=== PATIENT | male | born 2000 | race Caucasian/White ===

== ENCOUNTER 2022-02-07 09:26 | Outpatient (CLI) | payer OTHER, SELFPAY ==
--- NOTE | ~2022-02-07 | US_ITS ---
EXAMINATION: US scrotum doppler DATE: 02/07/2022 10:08 INDICATION: Testicular pain TECHNIQUE: Testicular sonogram utilizing grayscale and Doppler COMPARISON: None. FINDINGS: The right testis measures 3.3 x 3.4 x 2.5 cm. The left testis measures 4.2 x 3.5 x 2.3 cm. There is normal vascular flow to both testes. The right epididymis is normal with normal vascular dottie w. The left epididymis contains a 1.3 cm anechoic area, consistent with a cyst or spermatocele. There is no varicocele or hydrocele. IMPRESSION: 1. 1.3 cm cyst or spermatocele of the left epididymis. Reviewed, dictated and finalized at location A.
== END 2022-02-07 09:27 | disposition home or self-care (01) ==
PROVIDERS: PCP Family Medicine; Visit Provider Nurse Practitioner Family
DX: N50.819 Testicular pain, unspecified (principal); N50.3 Cyst of epididymis
CPT/HCPCS: 76870; 93976

== ENCOUNTER 2022-03-18 14:51 | Outpatient (CLI) | payer OTHER, SELFPAY ==
--- NOTE | ~2022-03-18 | XR_ITS ---
XR abdomen/kub 1V 03/18/2022 15:12 INDICATION: Microscopic hematuria TECHNIQUE: KUB COMPARISON: None FINDINGS: Bowel gas pattern is normal. There is no evidence of free air, mass, organomegaly, ascites or obstruction. No abnormal calculi are seen. The bones appear intact. There are pelvic phlebolith s. IMPRESSION: 1: No acute abdominal abnormality identified. Reviewed, dictated and finalized at location B.
--- NOTE | ~2022-03-18 | CT_ITS ---
EXAMINATION: CT abdomen pelvis wo/w con DATE: 03/18/2022 15:36 INDICATION: Microscopic hematuria TECHNIQUE: Computed tomography (CT) of the abdomen and pelvis was performed without and with 130 cc O mnipaque 300 intravenous contrast. The dose-length product was 2524.69 mGy-cm. Automated exposure con trol and iterative reconstruction technique were employed. COMPARISON: None. FINDINGS: Lung bases are unremarkable. Heart size is normal. No significant pleural or pericardial ef fusion. No significant vascular abnormality. No lymphadenopathy. The liver, spleen, pancreas, adrenal glands and kidneys are unremarkable. Gallbladder is present. No renal stones or hydronephrosis. Nonobstructive bowel gas pattern. No acute osseous abnormality. There is a small 1 cm left renal cyst. Ureters are normal in course and caliber. Bladder is unremarkable. No free air or free fluid. No abnormal pelvic masses or fluid collections. IMPRESSION: 1. No acute abdominal abnormality. Reviewed, dictated and finalized at location B.
== END 2022-03-18 14:52 | disposition home or self-care (01) ==
PROVIDERS: PCP Family Medicine; Visit Provider Urology
DX: R31.29 Other microscopic hematuria (principal)
CPT/HCPCS: 74018; 74178; Q9967

== ENCOUNTER 2024-08-17 06:51 | Outpatient (CLI) | payer OTHER, SELFPAY ==
[2024-08-17 07:35] LABS: Hematocrit 46.3 % (42.0-52.0); Hemoglobin 15.9 g/dL (14.0-18.0); Mean Corpuscular HGB Conc 34.3 g/dl (32-36); Mean Corpuscular Hemoglobin 30.5 pg (26-34); Mean Corpuscular Volume 88.7 fl (80-100); Mean Platelet Volume 9.8 fl (7.4-10.4); Platelet Count Result 426 k/mm3 (150-375); Red Blood Count 5.22 M/mm3 (4.6-6.20); Red Cell Distribution Width 12.7 % (11.5-14.5); White Blood Count 7.9 K/mm3 (4.5-10.0)
[2024-08-17 07:48] LABS: Alanine Aminotransferase 32 U/L (6-50); Albumin Level 4.8 g/dL (3.5-5.1); Alkaline Phosphatase 72 U/L (38-126); Anion Gap 9 mmol/L (4-12); Aspartate Amino Transferase 33 U/L (17-59); Bilirubin,Total 0.6 mg/dL (0.2-1.3); Blood Urea Nitrogen 13 mg/dL (9-20); Calcium 9.4 mg/dL (8.4-10.2); Carbon Dioxide 28 mmol/L (22-30); Chloride 103 mmol/L (98-107); Cholesterol 157 mg/dL (0-200); Estimated Glomerular Filt Rate > 60; Glucose 95 mg/dL (65-110); HDL Direct 41 mg/dL; Potassium 3.9 mmol/L (3.4-5.0); Sodium 140 mmol/L (137-145); Triglycerides 168 mg/dL (<150)
[2024-08-17 07:59] LABS: LDL Cholesterol Direct 63 mg/dL
[2024-08-17 09:55] LABS: Vitamin D 25 Hydroxy 18.9 ng/mL
== END 2024-08-17 06:52 | disposition home or self-care (01) ==
LOC: ANHLAB 06:54
PROVIDERS: PCP Family Medicine; Visit Provider Nurse Practitioner Family
DX: E55.9 Vitamin D deficiency, unspecified (principal); I10 Essential (primary) hypertension; Z13.220 Encounter for screening for lipoid disorders; F41.9 Anxiety disorder, unspecified; Z13.29 Encounter for screening for other suspected endocrine disorder
CPT/HCPCS: 36415; 80053; 80061; 82306; 84443; 85027

== ENCOUNTER 2024-11-25 11:21 | Outpatient (CLI) | payer OTHER, SELFPAY ==
[2024-11-25 11:44] LABS: Basophils Absolute Auto 0.2 K/mm3 (0.0-0.1); Basophils Percent Auto 1.9 % (0.2-1.2); Eosinophils Absolute Auto 0.7 K/mm3 (0-0.3); Eosinophils Percent Auto 7.7 % (0-4.4); Hematocrit 46.2 % (42.0-52.0); Hemoglobin 15.4 g/dL (14.0-18.0); Immature Granulocyte Absolute 0.04 K/mm3 (0.00-0.031); Immature Granulocyte Percent A 0.4 % (0-0.5); Lymphocytes Absolute Auto 2.92 K/mm3 (0.9-3.2); Lymphocytes Percent Auto 32.7 % (18.3-44.2); Mean Corpuscular HGB Conc 33.3 g/dl (32-36); Mean Corpuscular Volume 90.1 fl (80-100); Mean Platelet Volume 9.8 fl (7.4-10.4); Monocytes Absolute Auto 0.7 K/mm3 (0.1-0.6); Monocytes Percent Auto 8.3 % (2.6-8.5); Neutrophils Absolute Auto 4.4 K/mm3 (1.3-6.7); Platelet Count Result 432 k/mm3 (150-375); Red Blood Count 5.13 M/mm3 (4.6-6.20); Red Cell Distribution Width 12.1 % (11.5-14.5); White Blood Count 8.9 K/mm3 (4.5-10.0)
--- OUTSIDE RECORDS SUMMARY | 2024-11-25 12:21 | XMS_ITS | Clinical Summary ---
Author Organization [facility] Address [address] [place] [address]. [place] [address] [place] [address] Care Team Providers Care In Flight Technician Name Role Phone Damon Saunders MD Primary Care Provider [phone] Allergies No known active allergies Medications No known medications Social History Tobacco Use Types Packs/Day Years Used Date Smoking Tobacco: Never Smokeless Tobacco: Never Tobacco Cessation:Counseling Given: Not Answered Alcohol Use Standard Drinks/Week Comments Yes 0 (1 standard drink = 0.6 oz pur e alcohol) 1-2 weekly Sex and Gender Information Value Date Recorded Sex Assigned at Not on file Legal Sex Male 8:53 AM CDT Gender Identity Not on file Sexual Orientation Not on file Last Filed Vital Signs Vital Sign Reading Time Taken Comments Blood Pressure 128/65 04/27/2023 10:30 AM CDT Pulse 92 04/27/2023 10:30 AM CDT Temperature 37.1 ??C (98.8 ??F) 04/27/2023 10:25 AM C DT Respiratory Rate 20 04/27/2023 10:25 AM CDT Oxygen Saturation 98% 04/27/2023 10:30 AM CDT Inhaled Oxygen Concentration - - Weight 108.9 kg (240 lb) 04/27/2023 8:59 AM CDT Height 182.9 cm (6') 04/27/2023 8:59 AM CDT Body Mass Index 32.55 04/27/2023 8:59 AM CDT Plan of Treatment Health Maintenance Due Date Last Done Comments Annual Physical 2001 HPV Vaccines (1 - Male 3-dose series) 2013 Hepatitis C 2016 DTaP, Tdap and Td Vaccines (7 - Td or Tdap) 07/08/2020 07/08/2010, 06/03/2004, 01/11/2000, Additional history exists COVID-19 Vaccine (2023- season) 2024 01/28/2022, 12/31/2021 Influenza Adult (#1) 2024 Hepatitis B Vaccines Completed 04/12/1999, 1998, 1998 Meningococcal Vaccine Aged Out 07/08/2010 No diana tawnya eligible based on patient's age to complete this topic Pneumococcal Vaccine: Pediatrics (0 to 5 Years) and At-Risk Patients (6 to 64 Years) Aged Out No longer eligible based on patient's age to complete this topic RSV Immunizations Under 20 Months Aged Out No longer eligible based on patient's age to complete this topic Insurance [facility] Care Teams In Flight Technician Relationship Specialty Start Date End Date Damon Saunders MD [address] [address] PCP - General FAMILY PRACTICE 04/27/23
[2024-11-25 12:48] LABS: Alanine Aminotransferase 37 U/L (6-50); Albumin Level 4.7 g/dL (3.5-5.1); Alkaline Phosphatase 63 U/L (38-126); Anion Gap 10 mmol/L (4-12); Aspartate Amino Transferase 43 U/L (17-59); Bilirubin,Total 0.7 mg/dL (0.2-1.3); Blood Urea Nitrogen 16 mg/dL (9-20); CRP 1.2 mg/dL (<1.0); Calcium 9.4 mg/dL (8.4-10.2); Carbon Dioxide 28 mmol/L (22-30); Chloride 102 mmol/L (98-107); Estimated Glomerular Filt Rate > 60; Glucose 89 mg/dL (65-110); Potassium 4.8 mmol/L (3.4-5.0); Sodium 140 mmol/L (137-145)
[2024-11-25 12:54] LABS: Iron 86 ug/dL (49-181)
[2024-11-25 13:04] LABS: Percent Iron Saturation 25 % (20-50)
[2024-11-25 13:06] LABS: Erythrocyte Sedimentation Rate 31 mm/hr (0-20)
== END 2024-11-25 11:22 | disposition home or self-care (01) ==
LOC: ANHLAB 11:22
PROVIDERS: PCP Family Medicine; Visit Provider Internal Medicine Hematology & Oncology
DX: D75.838 Other thrombocytosis (principal)
CPT/HCPCS: 36415; 80053; 82728; 83540; 83550; 85025; 85652; 86140

== ENCOUNTER 2025-06-05 07:04 | Outpatient (CLI) | payer OTHER, SELFPAY ==
--- OUTSIDE RECORDS SUMMARY | 2025-06-05 07:08 | XMS_ITS | Clinical Summary ---
[facility] Address [address] [place] [address] Care Team Providers Care Software Support Technician Name Role Phone Damon Saunders MD Primary Care Provider Allergies No known active allergies Medications lisinopriL (PRINIVIL) 5 mg tablet Take 5 mg by mouth daily. Active D3-red wine-resveratrol -malt 5,000-200 unit-mg Capsule Take by mouth. Active citalopram (CeleXA) 40 mg tablet Take 40 mg by mouth daily. Active Active Problems No known active problems Encounters Date Type Department Care Team Description 06/03/2025 External Device Data STL ABSTRACTION Provider, Abstract 04/16/2025 External Device Data STL ABSTRACTION Provider, Abstract 03/20/2025 External Device Data STL ABSTRACTION Provider, Abstract 03/19/2025 External Device Data STL ABSTRACTION Provider, Abstract from Last 3 Months Family History Medical History Relation Name Comments No Known Problems Brother No Known Problems Father No Known Problems Mother Relation Name Status Comments Brother Alive Father Alive Mother Social History Tobacco Use Types Packs/Day Years Used Date Smoking Tobacco: Never Smokeless Tobacco: Never Alcohol Use Standard Drinks/Week Comments Not Currently 0 (1 standard drink = 0.6 oz pur e alcohol) Occasionally Sex and Gender Information Value Date Recorded Sex Assigned at Not on file Legal Sex Male 11:49 AM ANNUAL GIVING MANAGER Gender Identity Not on file Sexual Orientation Not on file Last Filed Vital Signs Vital Sign Reading Time Taken Comments Blood Pressure 110/84 11/25/2024 10:48 AM ANNUAL GIVING MANAGER Pulse 100 11/25/2024 10:48 AM ANNUAL GIVING MANAGER Temperature 37.2 C (99 F) 11/25/2024 10:48 AM ANNUAL GIVING MANAGER Respiratory Rate 17 11/25/2024 10:4 8 AM ANNUAL GIVING MANAGER Oxygen Saturation 95% 11/25/2024 10: 48 AM ANNUAL GIVING MANAGER Inhaled Oxygen Concentration - - Weight 115.8 kg (255 lb 6.4 oz) 025 10:48 AM ANNUAL GIVING MANAGER Height 182.9 cm (6') 11/25/2024 10:48 AM ANNUAL GIVING MANAGER Body Mass Index 34.64 11/25/2024 10:48 AM ANNUAL GIVING MANAGER Plan of Treatment Upcoming Encounters Date Type Department Care Team (Late st Contact Info) Description 06/09/2025 1:00 PM CDT Office Visit [facility] Oncology and Hematology - [place] [address] [facility] [address] [place] [id number] Jose Cruz Luevano MD [address] [facility] [address] [place] [address] Health Maintenance Due Date Last Done Comments HPV VACCINES (1 - Male 3-dose series) 2013 DTAP/TDAP/TD VACCINES (1 - Tdap) 2017 HEPATITIS B VACCINES (1 of 3 - 19+ 3-dose series) 06/30 Preventative Visit- Commercial 10/30/2024 INFLUENZA VACCINE (#1) 2025 Insurance [facility] [id number] Care Teams Software Support Technician Relationship Specialty Start Date End Date Damon Saunders MD [address] [place] [address] PCP - General Family Practice 12/10/24
--- OUTSIDE RECORDS SUMMARY | 2025-06-05 07:08 | XMS_ITS | Patient Health Record ---
Author Organization [facility] [employer] [facility] Address [address] [place] [address] Care Team Providers Care Retail Clerk Name Role Phone Hai Ribeiro Unavailable [phone] Reason For Referral No Information Medications Medication SIG (Take, Route, Frequency, Duration) Notes Start Date End Date Status Viibryd 40 MG Oral 02/11/2020 Activ e FLUoxetine HCl 20 MG Oral 02/11/2020 Active buPROPion HCl ER (XL) 150 MG Oral 02/11/2020 Active Plan Of Treatment No Information Insurance Providers Payer Name Payer Address Payer Phone Subscriber Number Group Number Insured Name Patient Relationship to Insured Coverage Start Date Coverage End Date [facility] [address] [place] [address] [phone] [id number] DIAMOND MCLAIN Self - patient is the insured
--- OUTSIDE RECORDS SUMMARY | 2025-06-05 07:09 | XMS_ITS | Clinical Summary ---
Author Organization [facility] Address [address] [place] [address] Care Team Providers Care Registered Midwife Name Role Phone Damon Saunders MD Primary Care Provider [phone] Allergies No known active allergies Medications No [...] 92 04/27/2023 10:30 AM CDT Temperature 37.1 C (98.8 F) 04/27/2023 10:25 AM CDT Respiratory Rate 20 04/27/2023 10:25 AM CDT [...] 06/03/2004, 01/11/2000, Additional history exists COVID-19 Vaccine ( season) 2024 01/28/2022, 12/31/2021 Hepatitis B Vaccines Completed 04/12/1999, 1998, 1998 Meningococcal Vaccine Aged Out 07/08/2010 No diana tawnya eligible based on patient's age to complete this topic Meningococcal B Vaccine Aged Out No l onger eligible based on patient's age to complete this topic Pneumococcal Vaccine: Pediatrics (0 to 5 Years) and At-Risk Patients (6 to 49 Years) Aged Out No longer eligible based on patient's age to complete this topic RSV Immunizations Under 20 Months Aged Out No longer eligible based on patient's age to complete this topic Insurance [facility] Care Teams Registered Midwife Relationship Specialty Start Date End Date Damon Saunders MD [address] [place] [address] PCP - General FAMILY PRACTICE 04/27/23
--- OUTSIDE RECORDS SUMMARY | 2025-06-05 07:09 | XMS_ITS | Encounter Summary ---
Author Organization [facility] Address [address] [place] [address] Care Team Providers Care Construction Plant Operator Name Role Phone Damon Saunders MD Primary Care Provider [phone] Encounter Details Date Type Department Care Team (Late st Contact Info) Description 06/03/2025 External Device Data STL ABSTRACTION Provider, Abstract NO ADDRESS ON FILE Social History Tobacco Use Types Packs/Day Years Used Date Smoking Tobacco: Never Smokeless Tobacco: Never Alcohol Use Standard Drinks/Week Comments Not Currently 0 (1 standard drink = 0.6 oz pur e alcohol) Occasionally Sex and Gender Information Value Date Recorded Sex Assigned at Not on file Legal Sex Male 11:49 AM EXPERIENCE SPECIALIST Gender Identity Not on file Sexual Orientation Not on file documented as of this encounter Plan of Treatment Upcoming Encounters Date Type Department Care Team (Late st Contact Info) Description 06/09/2025 1:00 PM CDT Office Visit [facility] Oncology and Hematology - [place] [address] [place] [address] [address] [place] [address] Jose Cruz Luevano MD [address] [place] [address] documented as of this encounter Visit Diagnoses Not on filedocumented in this encounter Care Teams Construction Plant Operator Relationship Specialty Start Date End Date Damon Saunders MD [address] [place] [address] PCP - General Family Practice 12/10/24 documented as of this encounter
== END 2025-06-05 07:05 | disposition home or self-care (01) ==
LOC: ANHLAB 07:05
PROVIDERS: PCP Family Medicine; Visit Provider Nurse Practitioner Family
DX: E55.9 Vitamin D deficiency, unspecified (principal)
CPT/HCPCS: 36415; 82306

== ENCOUNTER 2025-06-09 13:20 | Outpatient (CLI) | payer OTHER, SELFPAY ==
[2025-06-09 13:31] LABS: Hematocrit 46.7 % (42.0-52.0); Hemoglobin 15.5 g/dL (14.0-18.0); Immature Granulocyte Percent A 0.7 % (0-0.5); Lymphocytes Absolute Auto 2.54 K/mm3 (0.9-3.2); Mean Corpuscular HGB Conc 33.2 g/dl (32-36); Mean Corpuscular Hemoglobin 30.2 pg (26-34); Mean Corpuscular Volume 90.9 fl (80-100); Nucleated Red Blood Cells Absolute Auto 0.000 K/mm3 (0.0-0.012); Nucleated Red Blood Cells Perc 0.0 % (0.0-0.2); Platelet Count Result 409 k/mm3 (150-375); Red Blood Count 5.14 M/mm3 (4.6-6.20); White Blood Count 9.7 K/mm3 (4.5-10.0)
--- OUTSIDE RECORDS SUMMARY | 2025-06-09 13:40 | XMS_ITS | Encounter Summary ---
Author Organization [facility] [employer] [facility] Address [address] [place] [address] Care Team Providers Care Guillotine Operator Name Role Phone Damon Saunders MD Primary Care Provider [phone] Reason for Visit * Reason Comments Follow Up Encounter Details Date Type Department Care Team (Late st Contact Info) Description 06/09/2025 1:00 PM CDT Office Visit [facility] Oncology and Hematology - [place] [address] [facility] [address] [place] [address] Jose Cruz Luevano MD [address] [facility] [address] [place] [address] Secondary thrombocytosis (Primary Dx) Social History Tobacco Use Types Packs/Day Years Used Date Smoking Tobacco: Never Smokeless Tobacco: Never Alcohol Use Standard Drinks/Week Comments Not Currently 0 (1 standard drink = 0.6 oz pur e alcohol) Occasionally Sex and Gender Information Value Date Recorded Sex Assigned at Not on file Legal Sex Male 11:49 AM FURNITURE ASSEMBLER AND INSTALLER Gender Identity Not on file Sexual Orientation Not on file documented as of this encounter Last Filed Vital Signs Vital Sign Reading Time Taken Comments Blood Pressure 126/97 06/09/2025 12:52 PM CDT Pulse 88 06/09/2025 12:52 PM CDT Temperature 36.1 C (97 F) 06/09/2025 12:52 PM CDT Respiratory Rate - - Oxygen Saturation 97% 06/09/2025 12:52 PM CDT Inhaled Oxygen Concentration - - Weight 111.1 kg (245 lb) 06/09/2025 12:52 PM CDT Height 182.9 cm (6') 06/09/2025 12:52 PM CDT Body Mass Index 33.23 06/09/2025 12:52 PM CDT documented in this encounter Plan of Treatment Scheduled Orders Name Type Priority Associated Diagnoses Orde r Schedule CBC WITHOUT DIFFERENTIAL Lab Stat Secondary thrombocytosis Expected: 06/09/2025, Expires: 06/09/2026 documented as of this encounter Visit Diagnoses Diagnosis Secondary thrombocytosis- Primary Essential thrombocythemia documented in this encounter Care Teams Guillotine Operator Relationship Specialty Start Date End Date Damon Saunders MD [address] [place] [address] PCP - General Family Practice 12/10/24 documented as of this encounter
--- OUTSIDE RECORDS SUMMARY | 2025-06-09 13:40 | XMS_ITS | Clinical Summary ---
Author Organization [facility] Address [address] [place] [address] Care Team Providers Care Biomedical Field Service Engineer Name Role Phone Damon Saunders MD Primary Care Provider [phone] Allergies No known active allergies Medications No [...] patient's age to complete this topic Insurance [facility] Care Teams Biomedical Field Service Engineer Relationship Specialty Start Date End Date Damon Saunders MD [address] [address] PCP - General FAMILY PRACTICE 04/27/23
--- OUTSIDE RECORDS SUMMARY | 2025-06-09 13:40 | XMS_ITS | Clinical Summary ---
Author Organization [facility]ique tillman [facility] Address [address] [place] [address] Care Team Providers Care Labor Supervisor Name Role Phone Damon Saunders MD Primary Care Provider [phone] Allergies No known active allergies Medications lisinopriL (PRINIVIL) 5 mg tablet Take 5 mg by mouth daily. Active D3-red wine-resveratrol -malt 5,000-200 unit-mg Capsule Take by mouth. Active citalopram (CeleXA) 40 mg tablet Take 40 mg by mouth daily. Active Active Problems No known active problems Encounters Date Type Department Care Team Description 06/09/2025 1:00 PM CDT Office Visit [facility] Oncology and Hematology - [place] [address] [place] [address] Jose Cruz Luevano MD Secondary thrombocytosis (Primary Dx) 06/03/2025 External Device Data STL ABSTRACTION Provider, [...] on file Legal Sex Male 11:49 AM STEAM CRANE OPERATOR Gender Identity Not on file Sexual Orientation Not on file Last Filed Vital Signs Vital Sign Reading Time Taken Comments Blood Pressure 126/97 06/09/2025 12:52 PM CDT Pulse 88 06/09/2025 12:52 PM CDT Temperature 36.1 C (97 F) 06/09/2025 12:52 PM CDT Respiratory Rate 17 11/25/2024 10:48 AM STEAM CRANE OPERATOR Oxygen Saturation 97% 06/09/2025 12:52 PM CDT Inhaled Oxygen Concentration - - Weight 111.1 kg (245 lb) 06/09/2025 12:52 PM CDT Height 182.9 cm (6') 06/09/2025 12:52 PM CDT Body Mass Index 33.23 06/09/2025 12:52 PM CDT Plan of Treatment Health Maintenance Due Date Last Done Comments HPV VACCINES (1 - Male 3-dose series) 2013 DTAP/TDAP/TD VACCINES (1 - Tdap) 2017 HEPATITIS B VACCINES (1 of 3 - 19+ 3-dose series) 06/30 Preventative Visit- Commercial 10/30/2024 INFLUENZA VACCINE (#1) 2025 Insurance [facility] Address: [facility] [id number] [place] [address] Care Teams Labor Supervisor Relationship Specialty Start Date End Date Damon Saunders MD [address] [place] [phone] PCP - General Family Practice 12/10/24
--- OUTSIDE RECORDS SUMMARY | 2025-06-09 13:40 | XMS_ITS | Patient Health Record ---
Author Organization [facility] [employer] [facility] Address [address] [place] [address] Care Team Providers Care Automotive Engineering Technician Name Role Phone aHi Ribeiro Unavailable [phone] Reason For Referral No Information Medications Medication [...] Insured Coverage Start Date Coverage End Date [facility] [address] [place] [address] [phone] [id number] DIAMOND MCLAIN Self - patient is the insured
== END 2025-06-09 13:21 | disposition home or self-care (01) ==
LOC: ANHLAB 13:20
PROVIDERS: PCP Family Medicine; Visit Provider Internal Medicine Hematology & Oncology
DX: D75.838 Other thrombocytosis (principal)
CPT/HCPCS: 36415; 85025

== ENCOUNTER 2025-10-27 08:24 | Emergency (ER) | payer OTHER, SELFPAY ==
[2025-10-27 08:32] VITALS: BP 153/86; PULSE 91; RESP 20; TEMP 36.1; O2SAT 99
--- OUTSIDE RECORDS SUMMARY | 2025-10-27 08:32 | XMS_ITS | Patient Health Record ---
Author Organization [facility] Address [address] [place] [address] Care Team Providers Care Platform Software Engineer Name Role Phone Hai Ribeiro Unavailable [phone] Reason For Referral No Information Medications Medication SIG (Take, Route, Frequency, Duration) Notes Start Date End Date Status Viibryd 40 MG Tablet Oral 02/11/2020 Active FLUoxetine HCl 20 MG Capsule Oral 02/11/2020 Active buPROPion HCl ER (XL) 150 MG Tablet Extended Release 24 Hour Oral 02/11/2020 Active Social History Social History Additional Details Category Social Info Options Details Migrated Social History Migrated Social History Tobacco Years: Never smoker 01/03/2020 Plan Of Treatment No Information Insurance Providers Payer Name Payer Address Payer Phone Subscriber Number Group Number Insured Name Patient Relationship to Insured Coverage Start Date Coverage End Date [facility] [address] [place] [address] [id number] DIAMOND MCLAIN Self - patient is the insured
--- OUTSIDE RECORDS SUMMARY | 2025-10-27 08:32 | XMS_ITS | Clinical Summary ---
Author Organization [facility] Address [address] [place] [address] Care Team Providers Care Science Faculty Member Name Role Phone Damon Saunders MD Primary Care Provider [phone] Allergies No known active allergies Medications No [...] Date Last Done Comments Annual Physical 2001 Hepatitis A Vaccines (2 of 2 - 2-dose series) 11/27/2013 05/27/2013 Hepatitis C 2016 DTaP, Tdap and Td Vaccines (7 - Td or Tdap) 07/08/2020 07/08/2010, 06/03/2004, 01/11/2000, Additional history exists COVID-19 Vaccine ( season) 2025 01/28/2022, 12/31/2021 HPV Vaccines (1 - 3-dose SCDM series) 2025 Influenza Adult (#1) 2025 Hepatitis B Vaccines Completed 04/12/1999, 1998, 1998 [...] patient's age to complete this topic Insurance [facility] Care Teams Science Faculty Member Relationship Specialty Start Date End Date Damon Saunders MD [address] [address] PCP - General FAMILY PRACTICE 04/27/23
--- OUTSIDE RECORDS SUMMARY | 2025-10-27 08:32 | XMS_ITS | Clinical Summary ---
Author Organization [facility] Address [address] [place] [address] Care Team Providers Care Virologist Name Role Phone Damon Saunders MD Primary Care Provider [phone] Allergies No known active allergies Medications lisinopriL (PRINIVIL) 5 mg tablet Take 5 mg by mouth daily. Active D3-red wine-resveratrol -malt 5,000-200 unit-mg Capsule Take by mouth. Active citalopram (CeleXA) 40 mg tablet Take 40 mg by mouth daily. Active Active Problems No known active problems Encounters Date Type Department Care Team Description 10/14/2025 External Device Data STL ABSTRACTION Provider, Abstract 09/30/2025 External Device Data STL ABSTRACTION Provider, Abstract 09/23/2025 External Device Data STL ABSTRACTION Provider, Abstract [...] on file Legal Sex Male 11:49 AM DELI BAKERY CLERK Gender Identity Not on file Sexual Orientation Not on file Last Filed Vital Signs Vital Sign Reading Time Taken Comments Blood Pressure 126/97 06/09/2025 12:52 PM CDT Pulse 88 06/09/2025 12:52 PM CDT Temperature 36.1 C (97 F) 06/09/2025 12:52 PM CDT Respiratory Rate 17 11/25/2024 10:48 AM DELI BAKERY CLERK Oxygen Saturation 97% 06/09/2025 12:52 PM CDT Inhaled Oxygen Concentration - - Weight 111.1 kg (245 lb) 06/09/2025 12:52 PM CDT Height 182.9 cm (6') 06/09/2025 12:52 PM CDT Body Mass Index 33.23 06/09/2025 12:52 PM CDT Plan of Treatment Upcoming Encounters Date Type Department Care Team (Late st Contact Info) Description 03/09/2026 10:00 AM CDT Office Visit [facility] Oncology and Hematology - [place] [address] [facility] [address] [place] [address] Jose Cruz Luevano MD [address] [facility] [address] [place] [address] Health Maintenance Due Date Last Done Comments DTAP/TDAP/TD VACCINES (1 - Tdap) 2017 HEPATITIS B VACCINES (1 of 3 - 19+ 3-dose series) 06/30 INFLUENZA VACCINE (#1) 2025 HPV VACCINES (No Doses Required) Completed Insurance [facility] [id number] Care Teams Virologist Relationship Specialty Start Date End Date Damon Saunders MD [address] [place] [phone] PCP - General Family Practice 12/10/24
--- NOTE | 2025-10-27 08:56 | ED.MALEGU ---
HPI - Male Genitourinary General Chief complaint: Urogenital-Male Stated complaint: Urogenital-Male Time Seen by Provider: 10/27/25 08:45 Source: patient and RN notes reviewed Mode of arrival: ambulatory Limitations: no limitations History of Present Illness HPI Narrative: 25-year-old male patient presents today with a 3 day history of intermittent dysuria. He noted some white/yellow penile discharge with some redness at the tip of his penis since last night. Denies fever, hematuria, abdominal pain, scrotal or testicular discomfort, or GI symptoms. He has been having unprotected intercourse with a female partner for the last 4 months. Related Data Allergies Allergy/AdvReac Type Severity Reaction Status Date / Time No Known Allergies Allergy Verified 10/27/25 08:27 [facility] Past Medical History Medical History Other fatigue Ingrowing toenail with infection Ingrown toenail Testicular pain Abnormal platelets Elevated blood pressure reading in office without diagnosis of hypertension Spermatocele BMI 33.0-33.9,adult BMI 32.0-32.9,adult Panic attacks Sleep apnea mild Anxiety Hx of hematuria Surgical History Surgical History No history of previous surgery Family History Family History Father Hypertension Tobacco abuse Obesity Mother Obesity Sibling Tobacco abuse Other Diabetes mellitus Social History Social History Smoking status: Never smoker Second hand tobacco smoke exposure: Yes Alcohol intake: current Substance use: current Substance use type: marijuana Lack of Transportation: No Lack of Food: Never True Current Housing: I Have Housing Concerned About Future Housing: No Difficulty Paying Gas/Electric Bills: No Difficulty Paying for Meds: No Currently Unemployed: No Education: Bachelor's Degree Difficulty w/ Childcare or Family Care: No Living arrangements: with family Occupation/Education: occupation 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 Please see nursing chart for further information. There is no relevant family history pertinent to the presenting complaint Exam Narrative: GENERAL: Well-appearing, well-nourished, and in no acute distress. HEAD: Normocephalic, atraumatic. EYES: EOMI. No redness or drainage. Conjunctivae normal. ENT: Mucous membranes pink and moist. NECK: Normal AROM. CHEST: No respiratory distress. : Exam deferred EXTREMITIES: Normal range of motion. No edema. SKIN: Warm, dry, no rash. Capillary refill normal. Normal skin turgor. NEURO: No focal deficits. Alert and oriented x3. Gait steady. PSYCH: Normal affect. No signs of depression or anxiety. Course Course Level of Care: Express Care Visit Vital Signs Vital signs: Vital Signs Temperature 36.1 C L 10/27/25 08:32 Pulse Rate 91 10/27/25 08:32 Respiratory Rate 20 10/27/25 08:32 Blood Pressure 153/86 H 10/27/25 08:32 Pulse Oximetry 99 10/27/25 08:32 Oxygen Delivery Room Air 10/27/25 08:32 Temperature 36.1 C L 10/27/25 08:32 Pulse Rate 91 10/27/25 08:32 Respiratory Rate 20 10/27/25 08:32 Blood Pressure 153/86 H 10/27/25 08:32 Pulse Oximetry 99 10/27/25 08:32 Oxygen Delivery Room Air 10/27/25 08:32 Reviewed MDM MDM Narrative Medical decision making narrative: 25-year-old male patient presents today with a 3 day history of intermittent dysuria. He noted some white/yellow penile discharge with some redness at the tip of his penis since last night. Denies fever, hematuria, abdominal pain, scrotal or testicular discomfort, or GI symptoms. He has been having unprotected intercourse with a female partner for the last 4 months. Exam deferred. Urine sent for gonorrhea, chlamydia, and Trichomonas. Rocephin given to cover for gonorrhea. Prescriptions sent for doxycycline and metronidazole to cover for chlamydia and Trichomonas respectively. Urinalysis shows trace leukocytes and 3+ blood. Urine culture pending patient will not be started on antibiotics for UA at this time. Patient agrees with plan. Vital signs stable. Anticipatory guidance given. Differential Diagnosis Differential Diagnosis: UTI, prostatitis, gonorrhea, chlamydia, Trichomonas Lab Data [facility] Lab Attestation statement: I personally reviewed the patient's lab results. Lab results narrative: Urinalysis Glucose negative Bilirubin negative Ketones negative Specific gravity 1.020 Blood 3+ PH 5.5 Protein negative Urobilinogen Nitrites negative Leukocyte esterase trace Labs: Lab Results 10/27/25 10/27/25 Range/Units 08:30 09:01 POC Urine Color Yellow POC Urine Clarity Cloudy POC Urine pH 5.5 POC Ur Specif [place] 1.020 POC Urine Protein Negative (Negative) POC Ur Glucose (UA) Negative (Negative) POC Urine Ketones Negative (Negative) POC Urine Blood 3+ (Negative) POC Urine Nitrite Negative (Negative) POC Urine Bilirubin Negative (Negative) POC Urine Urobilinogen 0.2 POC U Leukocyte Esteras Trace (Negative) C. trachomatis (PCR) Not detected (NOT DETECTE) N. gonorrhoeae (PCR) Detected A (NOT DETECTE) T. vaginalis (PCR) Not detected (NOT DETECTE) Critical Care Time Critical Care Time Critical Care Time: No Discharge Plan Discharge Clinical Impression: Discharge from penis, Dysuria, Encounter for screening examination for sexually transmitted infection Patient Disposition: Home Condition: Stable Instructions: Antibiotic Form, Chlamydia (ED), Gonorrhea (ED), Trichomoniasis (ED) Additional Instructions: Your urinalysis sample at [facility] today was abnormal. Your urine sample has been sent off to test for gonorrhea, chlamydia, and trichomonas infections. These tests can take up to 24 hours to come back. You will be notified by telephone if any of your tests come back positive. You have been treated with Rocephin in urgent care today to cover you for gonorrhea. Prescriptions for Flagyl and doxycycline have been sent to your pharmacy to cover you for trichomonas and chlamydia. If any of your tests come back positive you should need no further treatment. If any of your test come back positive, you will need to notify any partners that you have, and they will need to be tested and treated. If your tests come back negative and you are still experiencing symptoms, please follow-up with your PCP, a sexual health clinic, or urologist for further evaluation and treatment. If your symptoms worsen to include fever, abdominal pain, or back pain, please go to the hospital immediately. Patient Language: Malay Prescriptions: New doxycycline hyclate 100 mg tablet 100 mg PO BID 7 Days Qty: 14 0RF metronidazole 500 mg tablet 2,000 mg PO ONCE Qty: 4 0RF No Action lisinopril 5 mg tablet 5 mg PO DAILY Qty: 90 3RF hydrocortisone [Procto-Med HC] 2.5 % cream with perineal applicator 1 applic RECTAL TID PRN (Reason: hemorrhoids) Qty: 30 0RF cholecalciferol (vitamin D3) 125 mcg (5,000 unit) capsule 125 mcg PO DAILY Qty: 90 0RF citalopram 40 mg tablet 40 mg PO DAILY Qty: 90 3RF Follow-up/Referrals: Damon Saunders MD [Primary Care Provider, Family Practice] Time of Disposition: 09:09
[2025-10-27] MEDS: cefTRIAXone 500 MG, LIDOCAINE 1% LOCAL INJ 1 ML IM (09:01)
[2025-10-27 09:03] LABS: EDUAAPPEAR Cloudy; EDUABILI Negative (Negative); EDUABLOOD 3+ (Negative); EDUACOLOR1 Yellow; EDUAGLUCOSE Negative (Negative); EDUAKETONE Negative (Negative); EDUALEUKO Trace (Negative); EDUANITRATE Negative (Negative); EDUAPH 5.5; EDUAPROTEIN Negative (Negative); EDUASPGRAVITY 1.020; EDUAUROBILI 0.2
[2025-10-27 20:02] LABS: Trichomonas Vag PCR NOT DETECTED (NOT DETECTE)
== END 2025-10-27 09:11 | disposition home or self-care (01) ==
PROVIDERS: Emergency Provider Nurse Practitioner; PCP Family Medicine
DX: R36.9 Urethral discharge, unspecified (principal); R30.0 Dysuria; Z11.3 Encounter for screening for infections with a predominantly sexual mode of transmission; F12.90 Cannabis use, unspecified, uncomplicated
CPT/HCPCS: 81003; 87086; 87491; 87591; 87661; 96372; 99213; G0463; J0696; J2003